=== PATIENT | female | born 1990 | race Two or more races ===

== ENCOUNTER 2022-04-15 08:31 | Emergency (ER) | payer OTHER ==
[~2022-04-15] VITALS: Ht 149.9 cm; Wt 45.4 kg
== END 2022-04-15 13:14 | disposition home or self-care (01) ==
LOC: ER 08:31
DX: R10.9 Unspecified abdominal pain (principal)

== ENCOUNTER 2022-08-10 17:10 | Emergency (ER) | payer OTHER ==
[~2022-08-10] VITALS: Ht 154.9 cm; Wt 54.0 kg
== END 2022-08-10 18:52 | disposition home or self-care (01) ==
LOC: ER 17:10
DX: R51.9 Headache, unspecified (principal)

== ENCOUNTER 2022-08-11 14:45 | Emergency (ER) | payer OTHER ==
[~2022-08-11] VITALS: Ht 149.9 cm; Wt 42.2 kg
== END 2022-08-11 21:59 | disposition home or self-care (01) ==
LOC: ER 14:45
DX: M62.838 Other muscle spasm (principal)

== ENCOUNTER 2024-03-29 20:20 | Emergency (ER) | payer OTHER ==
[~2024-03-29] VITALS: Ht 149.9 cm; Wt 48.5 kg
[2024-03-29] MEDS ORDERED: KETOROLAC TROMETHAMINE 60 MG VIAL IM ONE (21:00)
[2024-03-29] MEDS ORDERED: DEXAMETHASONE SODIUM PHOSPHATE 4 MG/ML VIAL IM ONE (21:00)
[2024-03-29] MEDS ORDERED: DICLOFENAC SODI75 MG PO (21:38)
== END 2024-03-29 21:40 | disposition home or self-care (01) ==
LOC: ER 20:22
DX: R07.81 Pleurodynia (principal)